=== PATIENT | male | born 1995 | race Caucasian/White ===

== ENCOUNTER → 2018-01-05 | Outpatient (REF) | payer MEDICARE | LOC: M SFHCLERA 17:53 | DX: J02.9 Acute pharyngitis, unspecified (principal) ==

== ENCOUNTER 2020-03-21 07:05 | Emergency (ER) | payer MEDICARE, OTHER ==
[~2020-03-21] VITALS: Ht 175.3 cm; Wt 120.9 kg
[2020-03-21 07:06] VITALS: BP 153/80
[2020-03-21] MEDS ORDERED: NEXI40CA PO (07:15)
[2020-03-21] MEDS ORDERED: LISI10TA4 (07:15)
== END 2020-03-21 07:45 | disposition home or self-care (01) ==
LOC: M ED 07:05
DX: Z02.83 Encounter for blood-alcohol and blood-drug test (principal); I10 Essential (primary) hypertension; K21.9 Gastro-esophageal reflux disease without esophagitis; F17.220 Nicotine dependence, chewing tobacco, uncomplicated; Z79.899 Other long term (current) drug therapy